=== PATIENT | female | born 1965 | race Caucasian/White ===

== ENCOUNTER → 2016-05-04 | Outpatient (CLI) | payer BC ==
[~2016-05-04] MED LIST: CHLO0.124 MT; ESCI20TA PO; IBUP800T23 PO; LISI10TA2 PO; MAGICMW SS; PERC5TAB6 PO
[2016-05-04 14:15] LABS: ANION GAP 8 MEQ/L (8-16); BLOOD UREA NITROGEN 20 MG/DL (7-18); CALCIUM LEVEL 8.7 MG/DL (8.5-10.1); CARBON DIOXIDE LEVEL 28 MEQ/L (21-32); CHLORIDE LEVEL 106 MEQ/L (98-107); CREATININE FOR GFR 0.74 MG/DL (0.55-1.02); GLOMERULAR FILTRATION RATE > 60.0 (>51); GLUCOSE, FASTING 90 MG/DL (70-105); POTASSIUM SERUM 4.3 MEQ/L (3.5-5.1); SODIUM LEVEL 142 MEQ/L (136-145)
== END ==
LOC: M LAB 12:56
PROVIDERS: ATTEND Nurse Practitioner Family
DX: Z01.818 Encounter for other preprocedural examination (principal); M12.9 Arthropathy, unspecified

== ENCOUNTER → 2016-10-11 | Outpatient (CLI) | payer MEDICAID, OTHER ==
[~2016-10-11] MED LIST changes: +IBUP1TAB7 PO; -IBUP800T23 PO; +PERC5TAB12 PO; -PERC5TAB6 PO
[2016-10-11 14:07] LABS: MEAN CORPUSCULAR HEMOGLOBIN 27.9 pg (27.0-33.0); MEAN CORPUSCULAR HGB CONC 32.8 g/dl (32.0-36.5); MEAN CORPUSCULAR VOLUME 85.2 fl (80.0-96.0); RED CELL DISTRIBUTION WIDTH 14.3 % (11.5-14.5); WHITE BLOOD COUNT 7.3 K/mm3 (4.0-10.0)
[2016-10-11 14:39] LABS: VITAMIN B12 LEVEL 407 PG/ML (247-911)
[2016-10-11 14:40] LABS: ALBUMIN 3.7 GM/DL (3.2-5.2); ALBUMIN/GLOBULIN RATIO 0.93 (1.00-1.93); ALKALINE PHOSPHATASE 212 U/L (45-117); ALT/SGPT 23 U/L (12-78); ANION GAP 8 MEQ/L (8-16); AST/SGOT 16 U/L (15-37); BILIRUBIN,TOTAL 0.5 MG/DL (0.2-1.0); BLOOD UREA NITROGEN 13 MG/DL (7-18); CALCIUM LEVEL 8.2 MG/DL (8.5-10.1); CARBON DIOXIDE LEVEL 26 MEQ/L (21-32); CHLORIDE LEVEL 108 MEQ/L (98-107); CHOLESTEROL LEVEL 174 MG/DL (<200); CREATININE FOR GFR 0.82 MG/DL (0.55-1.02); FREE T4 0.93 NG/DL (0.76-1.46); GLOMERULAR FILTRATION RATE > 60.0 (>51); GLUCOSE, FASTING 100 MG/DL (70-105); POTASSIUM SERUM 4.3 MEQ/L (3.5-5.1); SODIUM LEVEL 142 MEQ/L (136-145); TOTAL PROTEIN 7.7 GM/DL (6.4-8.2); TRIGLYCERIDES LEVEL 94 MG/DL (<150)
== END ==
LOC: M LAB 13:22
PROVIDERS: ATTEND Nurse Practitioner Family
DX: E78.5 Hyperlipidemia, unspecified (principal); R53.83 Other fatigue; D64.9 Anemia, unspecified

== ENCOUNTER → 2017-01-25 | Outpatient (REF) | payer OTHER | LOC: M SFHCWAGY 12:02 | PROVIDERS: ATTEND Nurse Practitioner Family | DX: Z12.4 Encounter for screening for malignant neoplasm of cervix (principal) ==

== ENCOUNTER → 2017-02-25 | Outpatient (REF) | payer OTHER | LOC: M SFHCWAGY 15:28 | DX: R87.810 Cervical high risk human papillomavirus (HPV) DNA test positive (principal); R87.610 Atypical squamous cells of undetermined significance on cytologic smear of cervix (ASC-US) | CPT/HCPCS: 88304 ==

== ENCOUNTER → 2017-06-21 | Outpatient (CLI) | payer OTHER | LOC: M RAD 12:43 | DX: N60.22 Fibroadenosis of left breast (principal) | CPT/HCPCS: 76642 ==

== ENCOUNTER 2017-10-12 15:04 | Emergency (ER) | payer OTHER | END 2017-10-12 15:54 | disposition home or self-care (01) | LOC: M ED 15:04 | DX: M25.551 Pain in right hip (principal); M25.552 Pain in left hip; M25.561 Pain in right knee; M25.562 Pain in left knee; M25.571 Pain in right ankle and joints of right foot; M25.572 Pain in left ankle and joints of left foot; I10 Essential (primary) hypertension; K21.9 Gastro-esophageal reflux disease without esophagitis; Z88.1 Allergy status to other antibiotic agents; Z88.2 Allergy status to sulfonamides | CPT/HCPCS: 99282 ==

== ENCOUNTER 2018-06-13 19:55 | Emergency (ER) | payer OTHER ==
[~2018-06-13] VITALS: Ht 162.6 cm; Wt 100.0 kg
[~2018-06-13 19:55] MED LIST changes: +NAPR-837 PO
[2018-06-13] MEDS ORDERED: CALC1TAB63 PO (20:00)
[2018-06-13] MEDS ORDERED: NORCO 5/325MG TABLET (BULK FOR ED) PO ONE (23:15)
[2018-06-13 23:32] VITALS: BP 131/81
--- NOTE | 2018-06-14 07:45 | REP ---
Right ankle four views History: Trauma fall Comparison: 07/12/2015 The patient is status post ORIF of fractures of the distal tibia and fibula. Metal hardware is present. There is no acute fracture or dislocation. The joint space is normal in appearance. Impression: There is no acute fracture or dislocation. Electronically Signed by Toney Stewart MD 06/14/2018 07:37 A
--- NOTE | 2018-06-14 07:47 | REP ---
Right foot four views History: Fall There is no acute fracture or dislocation. The joint spaces are normal in appearance. The patient is status post ORIF of fractures of the distal tibia and fibula. Impression: There is no acute fracture or dislocation. Electronically Signed by Toney Stewart MD 06/14/2018 07:38 A
== END 2018-06-13 23:33 | disposition home or self-care (01) ==
LOC: M ED 19:55
DX: M25.571 Pain in right ankle and joints of right foot (principal); W19.XXXA Unspecified fall, initial encounter; Y92.129 Unspecified place in nursing home as the place of occurrence of the external cause; Y93.01 Activity, walking, marching and hiking; Y99.0 Civilian activity done for income or pay; Z79.899 Other long term (current) drug therapy; Z88.2 Allergy status to sulfonamides

== ENCOUNTER → 2019-03-02 | Outpatient (CLI) | payer BC ==
[~2019-03-02] MED LIST changes: +CALC1TAB63 PO; +LISI10TA15 PO; -LISI10TA2 PO; +PROHANCE 279.3MG/ML 15ML VIAL (A9576) As Ordered ONE; +PROHANCE 279.3MG/ML 5ML VIAL (A9576) As Ordered ONE
--- NOTE | 2019-03-03 08:46 | REP ---
MRI right elbow without and with IV contrast: History: Localized swelling mass or lump right upper limb. Question lipoma. Fullness on the lateral side of the proximal forearm. The patient reports a lump to the last 8-9 months, recently enlarging. No comparison imaging. Technique: Axial, coronal and sagittal imaging planes were utilized. T1 and T2-weighted scans were included with and without fat saturation. Gadolinium enhancement dose is 20 mL of intravenous ProHance. MRI findings: There is unencapsulated slight asymmetric thickening of the subcutaneous fat layer posterior and lateral to the proximal radius. No encapsulated lipoma is seen. No other soft tissue mass is seen. Skeletal muscle signal intensity is normal. Cortical and medullary bone signal intensity are normal. There is a tiny subcortical cyst at the posterior aspect of the capitellum in the distal humerus. Triceps, biceps, and brachialis tendons appear intact. No vascular abnormality is seen. There is no abnormal gadolinium enhancement. Impression: Question regional hypertrophy or deposition of subcutaneous fat. No encapsulated lipoma or other soft tissue mass is seen. Electronically Signed by Mitchell Candelaria MD 03/03/2019 08:53 A
== END ==
LOC: M RAD 16:34
PROVIDERS: ATTEND Physician Assistant Surgical
DX: R22.31 Localized swelling, mass and lump, right upper limb (principal)
CPT/HCPCS: 73223; A9576

== ENCOUNTER → 2021-08-07 | Outpatient (REF) ==
[~2021-08-07] MED LIST changes: -ESCI20TA PO; +ESCI20TA16 PO; -LISI10TA15 PO; +LISI10TA24 PO; -PROHANCE 279.3MG/ML 15ML VIAL (A9576) As Ordered ONE; -PROHANCE 279.3MG/ML 5ML VIAL (A9576) As Ordered ONE
== END ==
LOC: M LABSMTC 11:33
PROVIDERS: ATTEND Family Medicine
DX: Z11.52 Encounter for screening for COVID-19 (principal)

== ENCOUNTER → 2021-08-11 | Outpatient (REF) | LOC: M EMP 08:16 | PROVIDERS: ATTEND Family Medicine | DX: Z11.52 Encounter for screening for COVID-19 (principal) ==

== ENCOUNTER → 2022-01-29 | Outpatient (REF) | LOC: M LABSMTC 10:48 | PROVIDERS: ATTEND Family Medicine | DX: Z11.52 Encounter for screening for COVID-19 (principal) ==

== ENCOUNTER → 2022-08-29 | Outpatient (CLI) | payer BC | LOC: M RAD 07:02 | PROVIDERS: ATTEND Nurse Practitioner Adult Health | DX: K43.9 Ventral hernia without obstruction or gangrene (principal) ==

== ENCOUNTER 2022-12-30 06:52 | Emergency (ER) | payer BC ==
[~2022-12-30] VITALS: Ht 162.6 cm; Wt 101.4 kg
[2022-12-30 06:54] VITALS: TEMP 97.5
[2022-12-30] MEDS ORDERED: LISI20TA35 (06:59)
[2022-12-30] MEDS ORDERED: MIRA3350 (06:59)
[2022-12-30] MEDS ORDERED: MELO15TA28 (06:59)
[2022-12-30] MEDS ORDERED: OMEP-173 (06:59)
[2022-12-30] MEDS ORDERED: ASPI81TA26 (06:59)
[2022-12-30 07:57] LABS: BASO % 0.3 % (0.0-1.0); EOS # 0.1 10^3/uL (0.0-0.5); EOS % 0.9 % (0.0-3.0); HEMATOCRIT 43.9 % (36.0-47.0); HEMOGLOBIN 14.4 g/dl (12.0-15.5); LYMPH # 2.4 10^3/uL (1.5-5.0); LYMPH % 26.1 % (24.0-44.0); MEAN CORPUSCULAR HEMOGLOBIN 29.8 pg (27.0-33.0); MEAN CORPUSCULAR HGB CONC 32.8 g/dl (32.0-36.5); MEAN CORPUSCULAR VOLUME 90.9 fl (80.0-96.0); MONO # 0.5 10^3/uL (0.0-0.8); MONO % 5.4 % (2.0-8.0); NEUTROPHILS # 6.2 10^3/uL (1.5-8.5); NEUTROPHILS % 67.1 % (36.0-66.0); PLATELET COUNT, AUTOMATED 221 10^3/uL (150-450); RED BLOOD COUNT 4.83 10^6/uL (4.00-5.40); WHITE BLOOD COUNT 9.2 10^3/uL (4.0-10.0)
[2022-12-30 08:12] LABS: LIPASE 35 U/L (12-53)
[2022-12-30 08:15] LABS: ALBUMIN 3.8 G/DL (3.2-5.2); ALKALINE PHOSPHATASE 154 U/L (46-116); ALT/SGPT 14 U/L (7.0-40); AST/SGOT 18 U/L (<34); BILIRUBIN,DIRECT 0.1 MG/DL (<0.4); BILIRUBIN,TOTAL 0.5 MG/DL (0.3-1.2); BLOOD UREA NITROGEN 17 MG/DL (9-23); CALCIUM LEVEL 9.2 MG/DL (8.5-10.1); CARBON DIOXIDE LEVEL 27 MMOL/L (20-31); CHLORIDE LEVEL 100 MMOL/L (98-107); CK-MB VALUE MASS < 1.0 NG/ML (<3.6); CREATININE FOR GFR 0.89 MG/DL (0.55-1.30); GLOMERULAR FILTRATION RATE > 60.0 (>51); GLUCOSE, FASTING 103 MG/DL (60-100); SODIUM LEVEL 137 MMOL/L (136-145); TOTAL PROTEIN 7.3 G/DL (5.7-8.2)
[2022-12-30 08:16] LABS: THYROID STIMULATING HORMONE 1.623 uIU/ML (0.55-4.78)
[2022-12-30 08:17] LABS: FREE T4 0.95 NG/DL (0.89-1.76)
[2022-12-30 08:18] LABS: CPK CREATINE PHOSPHOKINASE 64 U/L (34-145); MB/CK RELATIVE INDEX 1.56 (< OR =4)
[2022-12-30 08:26] LABS: RSV AMPLIFICATION NEGATIVE (NEGATIVE)
[2022-12-30 09:03] LABS: CK-MB VALUE MASS < 1.0 NG/ML (<3.6)
[2022-12-30 09:04] LABS: CPK CREATINE PHOSPHOKINASE 54 U/L (34-145); MB/CK RELATIVE INDEX 1.85 (< OR =4)
[2022-12-30 09:30] VITALS: BP 123/78; O2SAT 90
== END 2022-12-30 09:49 | disposition home or self-care (01) ==
LOC: M ED 06:52
DX: R51.9 Headache, unspecified (principal); I10 Essential (primary) hypertension; M79.621 Pain in right upper arm; R55 Syncope and collapse; J40 Bronchitis, not specified as acute or chronic; Z88.2 Allergy status to sulfonamides; Z79.899 Other long term (current) drug therapy; Z79.82 Long term (current) use of aspirin

== ENCOUNTER → 2023-01-23 | Outpatient (CLI) | payer BC ==
[~2023-01-23] MED LIST changes: +ASPI81TA26; +LISI20TA35; +MELO15TA28; +MIRA3350; +OMEP-173
== END ==
LOC: M CARPUL 08:31
PROVIDERS: ATTEND Internal Medicine Cardiovascular Disease
DX: R94.31 Abnormal electrocardiogram [ECG] [EKG] (principal)

== ENCOUNTER → 2023-05-15 | Outpatient (REF) ==
[2023-05-15 12:27] LABS: RSV AMPLIFICATION NEGATIVE (NEGATIVE)
== END ==
LOC: M EMP 10:11
PROVIDERS: ATTEND Family Medicine
DX: Z11.52 Encounter for screening for COVID-19 (principal)

== ENCOUNTER → 2023-09-10 | Outpatient (CLI) | payer BC | LOC: M SLEEP 20:00 | PROVIDERS: ATTEND Nurse Practitioner Family | DX: G47.33 Obstructive sleep apnea (adult) (pediatric) (principal) ==

== ENCOUNTER 2024-02-28 20:18 | Observation (INO) | payer BC, OTHER ==
[~2024-02-28] VITALS: Ht 162.6 cm; Wt 104.5 kg
[~2024-02-28 20:18] MED LIST changes: -LISI20TA35; +LISI20TA35 PO; -OMEP-173; +OMEP-173 PO
[2024-02-28] MEDS: NS (Normal Saline) 0.9% 1,000 ML IV ONE (21:02)
[2024-02-28 21:09] LABS: BASO % 0.2 % (0.0-1.0); EOS % 0.2 % (0.0-3.0); HEMATOCRIT 37.2 % (36.0-47.0); HEMOGLOBIN 11.9 g/dl (12.0-15.5); LYMPH # 1.4 10^3/uL (1.5-5.0); MEAN CORPUSCULAR HEMOGLOBIN 29.5 pg (27.0-33.0); MEAN CORPUSCULAR VOLUME 92.1 fl (80.0-96.0); MONO # 0.6 10^3/uL (0.0-0.8); MONO % 4.9 % (2.0-8.0); NEUTROPHILS # 10.6 10^3/uL (1.5-8.5); NEUTROPHILS % 83.3 % (36.0-66.0); PLATELET COUNT, AUTOMATED 230 10^3/uL (150-450); RED BLOOD COUNT 4.04 10^6/uL (4.00-5.40); WHITE BLOOD COUNT 12.7 10^3/uL (4.0-10.0)
[2024-02-28 21:31] LABS: INR 1.02; PARTIAL THROMBOPLASTIN TIME 23.5 SECONDS (24.8-34.2); PROTHROMBIN TIME 13.7 SECONDS (12.5-14.5)
[2024-02-28 21:37] LABS: CK-MB VALUE MASS < 1.0 NG/ML (<3.6)
[2024-02-28 21:39] LABS: BLOOD UREA NITROGEN 36 MG/DL (9-23); CARBON DIOXIDE LEVEL 24 MMOL/L (20-31); CHLORIDE LEVEL 109 MMOL/L (98-107); CPK CREATINE PHOSPHOKINASE 59 U/L (34-145); GLOMERULAR FILTRATION RATE 27.2 (>51); GLUCOSE, FASTING 101 MG/DL (60-100); MAGNESIUM LEVEL 1.9 MG/DL (1.8-2.4); MB/CK RELATIVE INDEX 1.69 (< OR =4); POTASSIUM SERUM 4.1 MMOL/L (3.5-5.1); SODIUM LEVEL 141 MMOL/L (136-145)
[2024-02-28 21:41] LABS: THYROID STIMULATING HORMONE 0.897 uIU/ML (0.55-4.78)
[2024-02-28 21:42] LABS: FREE T4 1.26 NG/DL (0.89-1.76)
[2024-02-28 22:40] LABS: CK-MB VALUE MASS < 1.0 NG/ML (<3.6)
[2024-02-28 22:42] LABS: CPK CREATINE PHOSPHOKINASE 52 U/L (34-145); MB/CK RELATIVE INDEX 1.92 (< OR =4)
[2024-02-28] MEDS ORDERED: CITA40TA7 PO (22:56)
[2024-02-28] MEDS ORDERED: ROSU5TAB49 PO (22:56)
[2024-02-28] MEDS ORDERED: DAPA10TA5 PO (22:56)
[2024-02-28] MEDS ORDERED: HOME MED LIST COMPLETE! XX SCH (23:00)
[2024-02-29] MEDS: NS 500 ML IV ONE (01:43)
[2024-02-29] MEDS: NS (Normal Saline) 0.9% 1,000 ML IV SCH (02:06)
[2024-02-29 02:33] LABS: KETONE, URINE AUTO RFX TRACE mg/dL (NEGATIVE); LEUKOCYTE ESTERASE UR AUTO RFX 2+ (NEGATIVE); NITRITE, URINE AUTO RFX NEGATIVE (NEGATIVE); RBC, URINE AUTO RFX 42 /HPF (0-3); SQUAM EPITHELIAL CELL UR AURFX 4 /HPF (0-6); WBC, URINE AUTO RFX 25 /HPF (0-3)
[2024-02-29 07:13] LABS: HEMATOCRIT 31.4 % (36.0-47.0); HEMOGLOBIN 10.2 g/dl (12.0-15.5); MEAN CORPUSCULAR HEMOGLOBIN 29.7 pg (27.0-33.0); MEAN CORPUSCULAR HGB CONC 32.5 g/dl (32.0-36.5); MEAN CORPUSCULAR VOLUME 91.5 fl (80.0-96.0); PLATELET COUNT, AUTOMATED 208 10^3/uL (150-450); RED BLOOD COUNT 3.43 10^6/uL (4.00-5.40); WHITE BLOOD COUNT 11.5 10^3/uL (4.0-10.0)
[2024-02-29 07:37] LABS: CALCIUM LEVEL 8.7 MG/DL (8.5-10.1); CREATININE FOR GFR 1.58 MG/DL (0.55-1.30); GLOMERULAR FILTRATION RATE 35.8 (>51); POTASSIUM SERUM 3.9 MMOL/L (3.5-5.1)
[2024-02-29] MEDS: OMEPRAZOLE 20MG CAP PO SCH (09:37)
[2024-02-29] MEDS: LR 1,000 ML IV SCH (09:41)
[2024-02-29 12:00] VITALS: BP 97/56; TEMP 96.3; O2SAT 97
[2024-02-29 14:42] VITALS: BP_SYST 108; BP_SYST 95; BP_SYST 99; BP_DIAS 52; BP_DIAS 54; BP_DIAS 64; TEMP 97.6; O2SAT 97
[2024-02-29 16:24] LABS: PROCALCITONIN 0.07 ng/ml
[2024-02-29] MEDS: SIMETHICONE 80MG CHEW TAB PO SCH (22:49)
[2024-02-29] MEDS: cefTRIAXone SOD 1 GM in DEXTROSE 5% (D5W) ADV/MINI-BAG 50 ML IV SCH (22:49)
[2024-02-29] MEDS: CitaloPRAM (CeleXA) 20 MG TAB PO SCH (22:49)
[2024-02-29] MEDS: PILL CUTTER 1 EACH XX PRN (22:50)
[2024-02-29] MEDS: ROSUVASTATIN 10 MG TAB (CRESTOR) PO SCH (22:50)
[2024-03-01 07:30] VITALS: BP 110/57; TEMP 97.9; O2SAT 95
[2024-03-01 07:41] LABS: HEMATOCRIT 32.9 % (36.0-47.0); HEMOGLOBIN 10.5 g/dl (12.0-15.5); MEAN CORPUSCULAR HGB CONC 31.9 g/dl (32.0-36.5); PLATELET COUNT, AUTOMATED 195 10^3/uL (150-450); WHITE BLOOD COUNT 7.2 10^3/uL (4.0-10.0)
[2024-03-01 08:13] LABS: CALCIUM LEVEL 8.5 MG/DL (8.5-10.1); CREATININE FOR GFR 1.32 MG/DL (0.55-1.30); POTASSIUM SERUM 4.1 MMOL/L (3.5-5.1)
[2024-03-01 11:04] VITALS: BP 98/57
[2024-03-01 11:06] VITALS: BP 105/60
[2024-03-01 11:08] VITALS: BP 110/65
[2024-03-01] MEDS: LACTOBACILLUS ACIDOPHILUS CAP (BACID) PO SCH (12:16)
[2024-03-01 12:21] VITALS: BP 103/57; TEMP 97.9; O2SAT 98
[2024-03-01 15:18] LABS: CALCIUM LEVEL 8.9 MG/DL (8.5-10.1); CREATININE FOR GFR 1.2 MG/DL (0.55-1.30); GLOMERULAR FILTRATION RATE 49.1 (>51); POTASSIUM SERUM 3.8 MMOL/L (3.5-5.1)
[2024-03-01] MEDS ORDERED: RISATAB3 PO (15:48)
[2024-03-01] MEDS ORDERED: AMOX500T2 PO (15:48)
[2024-03-01] MEDS ORDERED: VANC125C3 PO (15:48)
[2024-03-01] MEDS ORDERED: SIME80TA16 PO (15:48)
[2024-03-02] VITALS: BP 118/76; TEMP 97; O2SAT 99
[2024-03-02 06:44] LABS: HEMATOCRIT 33.1 % (36.0-47.0); HEMOGLOBIN 10.5 g/dl (12.0-15.5); MEAN CORPUSCULAR HEMOGLOBIN 29.6 pg (27.0-33.0); MEAN CORPUSCULAR HGB CONC 31.7 g/dl (32.0-36.5); MEAN CORPUSCULAR VOLUME 93.2 fl (80.0-96.0); PLATELET COUNT, AUTOMATED 183 10^3/uL (150-450); RED BLOOD COUNT 3.55 10^6/uL (4.00-5.40)
[2024-03-02 07:04] LABS: CALCIUM LEVEL 8.3 MG/DL (8.5-10.1); CREATININE FOR GFR 1.16 MG/DL (0.55-1.30); GLOMERULAR FILTRATION RATE 51.1 (>51); POTASSIUM SERUM 4.1 MMOL/L (3.5-5.1)
[2024-03-02] MEDS: ACETAMINOPHEN 325 MG TAB PO PRN (08:16)
== END 2024-03-02 10:29 | disposition home or self-care (01) ==
LOC: M ED 20:18 → M ED INP 02-29 00:10 → INTOOBSV 02-29 00:10
PROVIDERS: ADMIT Student in an Organized Health Care Education/Training Program; ATTEND Student in an Organized Health Care Education/Training Program
DX: R55 Syncope and collapse (principal); S00.03XA Contusion of scalp, initial encounter; W18.30XA Fall on same level, unspecified, initial encounter; Y92.512 Supermarket, store or market as the place of occurrence of the external cause; Y93.G9 Activity, other involving cooking and grilling; Y99.8 Other external cause status; R94.4 Abnormal results of kidney function studies; D72.829 Elevated white blood cell count, unspecified; N17.9 Acute kidney failure, unspecified; R10.9 Unspecified abdominal pain; R14.1 Gas pain; I10 Essential (primary) hypertension; R73.03 Prediabetes; G47.30 Sleep apnea, unspecified; E78.00 Pure hypercholesterolemia, unspecified; N39.3 Stress incontinence (female) (male); K21.9 Gastro-esophageal reflux disease without esophagitis; Z90.49 Acquired absence of other specified parts of digestive tract; Z90.89 Acquired absence of other organs; Z82.49 Family history of ischemic heart disease and other diseases of the circulatory system; Z79.899 Other long term (current) drug therapy; Z88.2 Allergy status to sulfonamides
CPT/HCPCS: 36415; 70450; 71045; 72125; 73130; 74176; 80048; 81001; 82550; 82553; 83605; 83735; 84145; 84439; 84443; 84484; 85025; 85027; 85610; 85730; 87086; 87507; 93005; 93041; 93306; 94760; 96361; 96374; 96376; 99285; J0696

== ENCOUNTER → 2024-09-11 | Outpatient (CLI) | payer OTHER ==
[~2024-09-11] MED LIST changes: +AMOX500T2 PO; +CITA40TA7 PO; +DAPA10TA5 PO; +RISATAB3 PO; +ROSU5TAB49 PO; +SIME80TA16 PO; +VANC125C13 PO
== END ==
LOC: M RAD 09:05
PROVIDERS: ATTEND Nurse Practitioner Family
DX: I10 Essential (primary) hypertension (principal)